=== PATIENT | female | born 1985 | race Caucasian/White ===

== ENCOUNTER → 2020-05-16 11:36 | Outpatient (CLI) | payer MEDICAID, SELFPAY | PROVIDERS: Visit Provider Nurse Practitioner Family | DX: R07.9 Chest pain, unspecified (principal); R06.00 Dyspnea, unspecified; R94.31 Abnormal electrocardiogram [ECG] [EKG]; I48.0 Paroxysmal atrial fibrillation; Z72.0 Tobacco use | CPT/HCPCS: 93270 ==

== ENCOUNTER → 2022-05-29 11:30 | Outpatient (CLI) | payer MEDICAID, SELFPAY ==
[2022-05-29 12:12] LABS: Basophils # 0.1 K/mm3 (0-0.2); Basophils % 0.6 % (0.1-2.0); Eosinophils # 0.2 K/mm3 (0.0-0.4); Eosinophils % 1.5 % (0.1-12.0); Hematocrit 44.7 % (37.0-47.0); Hemoglobin 14.3 g/dL (12.2-16.2); Lymphocytes # 4.1 K/mm3 (0.7-4.5); Lymphocytes % 41.3 % (10-50); Mean Corpuscular HGB Conc 32.1 g/dL (31.8-35.4); Mean Corpuscular Hemoglobin 30.3 pg (27.0-31.2); Mean Corpuscular Volume 94.6 fl (81-99); Mean Platelet Volume 7.8 fl (7.4-10.4); Neutrophils # 4.6 K/mm3 (1.8-7.8); Neutrophils % 46.5 % (37.0-80.0); Platelet Count 367 K/mm3 (142-424); Red Blood Count 4.72 M/mm3 (4.20-5.40); Red Cell Distribution Width 13.7 % (11.5-17.5); White Blood Count 9.9 K/mm3 (4.8-10.8)
[2022-05-29 12:41] LABS: Alanine Aminotransferase 29 U/L (12-78); Albumin Level 4.5 g/dl (3.5-5.0); Alkaline Phosphatase 114 U/L (38-126); Aspartate Amino Transferase 28 U/L (14-36); Bilirubin,Direct 0.2 mg/dl (0.0-0.4); Bilirubin,Indirect 0.3 mg/dL (0.0-0.9); Bilirubin,Total 0.5 mg/dl (0.2-1.3); Bilirubin,Unconjugated 0.3 mg/dL (0.0-1.1); Blood Urea Nitrogen 12 mg/dl (7-17); Calcium 9.7 mg/dl (8.4-10.2); Carbon Dioxide 25 mmol/L (22.0-30.0); Chloride 104 mmol/L (98-107); Cholesterol 222 mg/dl (140-200); Estimated Glomerular Filt Rate 111 ml/min (>60); GFR (African American) 135 ML/MIN (>60); Glucose 88 mg/dl (74-100); HDL Cholesterol 55 mg/dl (40-60); Sodium 138 mmol/L (136-145); Total Protein,Serum 7.2 g/dl (6.3-8.2); Triglycerides 115 mg/dl (30-150); VLDL Cholesterol 23 mg/dL (0-40)
[2022-05-29 12:52] LABS: Direct LDL Cholesterol 143.03 mg/dL (100-129)
== END ==
PROVIDERS: Visit Provider Nurse Practitioner
DX: R06.02 Shortness of breath (principal); R07.9 Chest pain, unspecified; R00.2 Palpitations; I48.0 Paroxysmal atrial fibrillation; E78.5 Hyperlipidemia, unspecified; R94.31 Abnormal electrocardiogram [ECG] [EKG]; Z72.0 Tobacco use
CPT/HCPCS: 36415; 80048; 80061; 80076; 85025

== ENCOUNTER → 2022-06-12 10:48 | Outpatient (CLI) | payer OTHER, MEDICAID, SELFPAY ==
--- NOTE | 2022-06-12 10:49 | NM_ITS ---
APPROVED REPORT Exam: Nuclear Stress Test Indication: Chest pain, SOB, Palpitations, Fatigue, High cholesterol, Tobacco use, Family history Patient Location: Outpatient Stress Tech: Mitzi Hubbard NH Tech:Christie Brannon, ARRT, RT (R)(N) Ht: 5 ft 5 in Wt: 260 lbs Bra Size: DD HR: 95 bpm BP: 133/82 mmHg BSA: 2.21 m2 TID: 1.11 BMI: 43.2 History: Chest pain, SOB, Palpitations, Fatigue, High cholesterol, Tobacco use, Family history Procedure: Patient exercised on Josh protocol 5:30 minutes and sec, resting heart rate 95 bpm, resting blood pressure 133/82 mmHg, with exercise maximum heart rate achived was 162 bpm which is 90 % of the maximum predicted heart rate and blood pressure was 184/90 mmHg. Test was stopped due to SOB. Patient denied any complaint of chest pain. Patient has Adequate exercise capacity, achieved 7.0 METs of workload on treadmill, the blood pressure response to exercise was Adequate. Electrocardiogram Resting electrocardiogram shows sinus rhythm, with exercise there is less than 1.[address] segment depression noted from the baseline EKG. The EKG portion of the exercise Myoview is negative for ischemia. Cardiac Stress and Resting SPECT Images: Cardiac Stress and Resting SPECT images were obtained using technetium 99m Myoview 32.3 mCi stress and 10.57 mCi at rest. Gated SPECT for analysis of segmental wall motion and calculation of the ejection fraction also done. Prone images were also obtained. Cardiac stress cholecystectomy show uniform myocardial activity without segmental perfusion abnormality, computer derived ejection fraction is 55% with no regional wall motion abnormality, right ventricle is normal size and contractility. Conclusion: 1. The EKG portion of the exercise Myoview is negative for ischemia, patient has adequate exercise capacity achieved 7 METS of workload on treadmill, the blood pressure response to exercise was adequate, there was no exercise-induced chest discomfort. 2. No scintigraphic evidence of reversible ischemia seen, computer derived ejection fraction is 55% with no regional wall motion abnormality, right ventricle is normal size and contractility. 3. Normal exercise Myoview study. Electronically signed by : David Castanon MD 06/13/2022 06:07:52
--- NOTE | 2022-06-12 11:40 | CA_ITS ---
APPROVED REPORT EXAM: Comprehensive 2D, Doppler, and color-flow Echocardiogram Bus Van Driver: Angelica eGorge RT(R) Ht: 5 ft 4 in Wt: 244lbs BSA: 2.13 BP: 118/83 mmHg Indications: smoker, palpitations, edema, DURAND, AFIB 2D Dimensions LVOT 1.93 cm (M/F) 1.5-2.5 LA Volume 43.90 mL LA Volume Index 20.61 mL/m2 (M/F) 16-34 M-Mode Dimensions RVDd 3.33 cm (0.9-2.6) LA Diam 3.59 cm (1.9-4.0) LVDd 4.61 cm (3.5-5.7) Ao Diam 2.87 cm (2.0-3.7) LVDs 3.68 cm (3.5-5.7) IVSd 0.86 cm (0.6-1.1) PWd 0.89 cm (0.6-1.1) EF (Teich) 41.30% FS 20.20% EDV (Teich) 97.80 mL ESV (Teich) 57.40 mL LV Diastology E Decel Time 210.00 (160-240 msec) E/A Ratio 1.5 MED E' 9.50 (< 7 cm/sec) E'/MED E' Ratio 9.45 (>14) LAT E' 11.60 (<10 cm/sec) E/LAT E' Ratio 7.74 (>14) Mitral Valve MV E Max Calixto. 90.00 (40-130 cm/s) MV A Velocity 61.00 (40-130 cm/s) E/A Ratio 1.46 MV Decel. Time 210.00 (160-240 ms) MV PHT 62.00 ms Left Ventricle Left atrium is normal size, left ventricle is normal size, estimated ejection fraction 55% with no regional wall motion abnormality, diastolic parameters are within normal range. Right Ventricle Right atrium and right ventricle are relatively normal size and function. Aortic Valve Aortic valve is grossly normal, there is no aortic stenosis or aortic insufficiency. Mitral Valve Mitral valve grossly normal, there is no mitral stenosis, there is no significant mitral regurgitation. Tricuspid Valve Tricuspid valve is grossly normal, there is no significant tricuspid regurgitation. Pulmonic Valve Pulmonic valve is poorly visualized. Great Vessels Aortic root is normal size. Inferior vena cava is normal 7 normal inspiratory collapse. Pericardium No significant pericardial effusion noted. Conclusion 1. Normal left ventricular size preserved left ventricular systolic function, estimated ejection fraction 55% with no regional wall motion abnormality, diastolic parameters are within normal range. 2. No significant pericardial effusion noted. 3. Inferior vena cava is normal size with normal inspiratory collapse. Electronically signed by : David Castanon MD 06/13/2022 06:59:45
--- NOTE | 2022-06-12 13:02 | HMH.ITSHM ---
Current Home Medications as stated by this patient Fani Gann or territory account representative. []METOPROLOL HYDROCODONE FAMOTIDINE ASA ALBUTEROL
--- NOTE | 2022-06-12 14:07 | CA_ITS ---
APPROVED REPORT Exam: Exercise Treadmill Technologist: Mitzi Suggs, Ht: 5 ft 4 in Wt: 260 lbs BSA: 2.19 m2 HR: 76 bpm BP: 143/86 mmHg Indications: CP, SOB Medical History Medications: Aspirin,,,,, PERCOCET,,,,, Albuterol,,,,, PEPcid,,,,, Toprol XL,,,,, Stress Test Details Test: Josh HR Resting HR: 95 bpm Max Heart Rate (APMHR): 181.568146 bpm Max HR Achieved: 162 bpm Target HR (85% APMHR): 153.329324 bpm % of APMHR: 89.50 Recovery HR: 99 bpm BP Resting BP: 133/82 mmHg Max BP: 184/90 mmHg Recovery BP: 140.0/84.0 mmHg ECG Resting ECG: NSR, cannot R/O old septal IL Clinical Exercise duration: 05:30 min Highest Stage Achieved: II Exercise capacity: 7.0 METs Stress ECG Conclusion Exercised 5:30 into Stage II of Josh Protocol. Max HR: 162 % of PM: 90% Max BP: 184/90 METs: 7.0 Test stopped due to: SOA Symptoms: No CP. Arrhythmias/Ectopy: Rare PVC. ST-T Changes: Normal ST response to exercise. Conclusion: Normal GXT. Myoview omages reported separately. Test Summary REST . . . . . . . Sitting REST 03:39 0.0 0.0 95 . 133/ 82 . . Stage 1 01:00 10.0 1.7 124 . . . . Stage 1 02:00 10.0 1.7 133 . . . . Stage 1 03:00 10.0 1.7 138 . 184/ 90 . . Stage 2 01:00 12.0 2.5 153 . . . . Stage 2 02:00 12.0 2.5 158 . . . . Stage 2 02:30 12.0 2.5 161 . . . Stop exercise at 05:30 RECOVERY 01:00 0.0 0.0 134 . . . . RECOVERY 02:00 0.0 0.0 111 . . . . RECOVERY 03:00 0.0 0.0 98 . 157/ 94 . . RECOVERY 04:00 0.0 0.0 102 . 145/ 85 . . RECOVERY 05:00 0.0 0.0 99 . 140/ 84 . . RECOVERY 05:18 0.0 0.0 99 . 140/ 84 . . Electronically signed by : David Castanon MD 06/13/2022 06:05:47
== END ==
PROVIDERS: PCP Nurse Practitioner; Visit Provider Nurse Practitioner
DX: R06.02 Shortness of breath (principal); R07.9 Chest pain, unspecified; R94.31 Abnormal electrocardiogram [ECG] [EKG]; I35.0 Nonrheumatic aortic (valve) stenosis; Z72.0 Tobacco use
CPT/HCPCS: 78452; 93017; 93306; A9502

== ENCOUNTER 2023-08-25 15:41 | Outpatient (CLI) | payer OTHER, SELFPAY ==
[2023-08-25 16:02] LABS: Basophils # 0.1 K/mm3 (0-0.2); Basophils % 0.5 % (0.1-2.0); Eosinophils # 0.1 K/mm3 (0.0-0.4); Eosinophils % 0.9 % (0.1-12.0); Hematocrit 42.9 % (37.0-47.0); Hemoglobin 13.7 g/dL (12.2-16.2); Lymphocytes # 3.9 K/mm3 (0.7-4.5); Lymphocytes % 35.9 % (10-50); Mean Corpuscular HGB Conc 31.9 g/dL (31.8-35.4); Mean Corpuscular Hemoglobin 31.1 pg (27.0-31.2); Mean Corpuscular Volume 97.5 fl (81-99); Monocytes # 1.2 K/mm3 (0.1-1.0); Monocytes % 10.9 % (1.7-9.3); Neutrophils # 5.7 K/mm3 (1.8-7.8); Neutrophils % 51.8 % (37.0-80.0); Platelet Count 302 K/mm3 (142-424); Red Cell Distribution Width 13.4 % (11.5-17.5); White Blood Count 10.9 K/mm3 (4.8-10.8)
[2023-08-25 16:31] LABS: Alanine Aminotransferase 21 U/L (12-78); Albumin Level 4.3 g/dl (3.5-5.0); Alkaline Phosphatase 84 U/L (38-126); Anion Gap 11.9 mEq/L (5-15); Aspartate Amino Transferase 22 U/L (14-36); Bilirubin,Direct 0.2 mg/dl (0.0-0.4); Bilirubin,Indirect 0.2 mg/dL (0.0-0.9); Bilirubin,Total 0.4 mg/dl (0.2-1.3); Bilirubin,Unconjugated 0.2 mg/dL (0.0-1.1); Blood Urea Nitrogen 7 mg/dl (7-17); Calcium 9.2 mg/dl (8.4-10.2); Carbon Dioxide 27 mmol/L (22.0-30.0); Chloride 108 mmol/L (98-107); Cholesterol 153 mg/dl (140-200); Estimated Glomerular Filt Rate 93 ml/min (>60); GFR (African American) 112 ML/MIN (>60); Glucose 101 mg/dl (74-100); HDL Cholesterol 38 mg/dl (40-60); Magnesium 2.1 mg/dl (1.6-2.3); Potassium 3.9 mmoL/L (3.5-5.1); Sodium 143 mmol/L (136-145); Total Protein,Serum 6.4 g/dl (6.3-8.2); Triglycerides 228 mg/dl (30-150); VLDL Cholesterol 46 mg/dL (0-40)
[2023-08-25 16:42] LABS: Direct LDL Cholesterol 77.55 mg/dL (100-129)
[2023-08-25 17:01] LABS: Thyroid Stimulating Hormone 0.71 uIU/mL (0.465-4.68)
== END 2023-08-25 23:59 ==
LOC: LAB 15:44
PROVIDERS: Visit Provider Physician Assistant
DX: I48.0 Paroxysmal atrial fibrillation (principal); R06.00 Dyspnea, unspecified; R07.9 Chest pain, unspecified
CPT/HCPCS: 36415; 80048; 80061; 80076; 83735; 84439; 84443; 85025

== ENCOUNTER 2023-09-22 14:02 | Outpatient (CLI) | payer OTHER, SELFPAY ==
--- NOTE | 2023-09-22 14:24 | CA_ITS ---
APPROVED REPORT EXAM: Comprehensive 2D, Doppler, and color-flow Echocardiogram Meat Specialist: Cecy Haynes RDCS Ht: 5 ft 4 in Wt: 256lbs BSA: 2.17 BP: 135/93 mmHg Indications: SOA AF SMOKER PALPS HLP M-Mode Dimensions RVDd 2.60 cm (0.9-2.6) LA Diam 3.79 cm (1.9-4.0) LVDd 4.77 cm (3.5-5.7) LVDs 3.28 cm (3.5-5.7) IVSd 0.98 cm (0.6-1.1) PWd 0.77 cm (0.6-1.1) EF (Teich) 59.00% FS 31.20% EDV (Teich) 106.00 mL ESV (Teich) 43.50 mL LV Diastology E Decel Time 237 (160-240 msec) E/A Ratio 1.3 Mitral Valve MV E Max Calixto. 106.0 (40-130 cm/s) MV A Velocity 81.0 (40-130 cm/s) E/A Ratio 1.31 MV PHT 69.0 ms Left Ventricle The left ventricle is normal size. The left ventricular systolic function is normal. The left ventricular ejection fraction is within the normal range. There is normal left ventricular wall thickness. There is normal LV segmental wall motion. The left ventricular diastolic function is normal. LVEF is 55%. Right Ventricle The right ventricle is normal size. The right ventricular systolic function is normal. Atria The left atrium size is normal. The right atrium size is normal. There is no Doppler evidence of interatrial shunt. Aortic Valve The aortic valve is normal in structure. There is no aortic valvular stenosis. No aortic regurgitation is present. Mitral Valve The mitral valve is normal in structure. No evidence of mitral valve stenosis. There is no mitral valve regurgitation noted. Tricuspid Valve The tricuspid valve leaflets are thin and pliable. Trace tricuspid regurgitation. There is insufficient TR jet to estimate RVSP. Pulmonic Valve The pulmonary valve is normal in structure. Trace pulmonic regurgitation. Great Vessels The aortic root is normal in size. The ascending aorta is normal in size. IVC is normal in size and collapses >50% with inspiration. Pericardium There is no pericardial effusion. Other Information Study Quality: Fair Conclusion Normal biventricular systolic function. No significant valvular stenosis or regurgitation. Electronically signed by : Ashwini Bain MD 09/23/2023 23:25:45
== END 2023-09-22 23:59 ==
LOC: RT 14:03
PROVIDERS: PCP Nurse Practitioner Family; Visit Provider Physician Assistant
DX: I48.0 Paroxysmal atrial fibrillation (principal); R06.00 Dyspnea, unspecified; R07.9 Chest pain, unspecified
CPT/HCPCS: 93306

== ENCOUNTER 2023-10-01 13:35 | Outpatient (CLI) | payer OTHER, SELFPAY ==
--- NOTE | 2023-10-01 13:36 | CT_ITS ---
FINAL REPORT CLINICAL HISTORY: DURAND, CP, Fam hx VTE FINDINGS: Thin section axial CT images of the chest were obtained with contrast. 3D reformatted images were also obtained. This study was performed with techniques to keep radiation doses as low as reasonably achievable (ALARA). Individualized dose reduction techniques using automated exposure control or adjustment of mA and/or kV according to the patient's size were employed. There is no evidence of pulmonary embolism. There is no evidence of thoracic aortic aneurysm or dissection. There is no evidence of mediastinal or hilar mass or adenopathy. There is no evidence of pulmonary mass or nodule. No localized inflammatory process is seen within the lungs. There is a calcified granuloma in the right lung base. Limited images of the upper abdomen are unremarkable. IMPRESSION: No evidence of pulmonary embolism. No mass or localized inflammatory process. Reviewed, Interpreted and Dictated by Mani Vu III, MD Transcribed by Ruby Garcia Authenticated and [facility]
[2023-10-01 14:00] LABS: Blood Urea Nitrogen 6 mg/dl (7-17); Estimated Glomerular Filt Rate 137 ml/min (>60); GFR (African American) 165 ML/MIN (>60)
[2023-10-01] MEDS: SODIUM CHLORIDE 0.9% 10ML SYR (RAD ONLY) 10 ML IV (14:39)
[2023-10-01] MEDS: IOPAMIDOL-370 (76%);100ML BOTTLE 100 ML IV (14:39)
[2023-10-01] MEDS: 0.9 % SODIUM CHLORIDE 50 ML VIAL IV (14:39)
== END 2023-10-01 23:59 | disposition home or self-care (01) ==
LOC: RAD 13:36
PROVIDERS: PCP Nurse Practitioner Family; Visit Provider Physician Assistant
DX: I48.0 Paroxysmal atrial fibrillation (principal); R06.00 Dyspnea, unspecified; R07.9 Chest pain, unspecified
CPT/HCPCS: 36415; 71275; 82565; 84520; Q9967